=== PATIENT | male | born 1940 | race Caucasian/White ===

== ENCOUNTER 2020-01-31 09:22 | Day surgery (SDC) | payer MEDICARE, OTHER ==
[~2020-01-31 09:22] MED LIST: ACETAZOLAMIDE 250 MG TABLET PO ONE; Ak-Dilate OPHTHALMIC*** 1.065 ML, Cyclogyl 1% OPHTH SOL 5 ML 1.065 ML, GATIFLOXACIN 0.5... OP ONE; BETADINE 5% OPHTHALMIC 30 ML OP ONE; Lactated Ringers 1,000 ML IV ONE; NON-FORMULARY ITEM OP ONE; TETRACAINE 0.5% STERI-UNIT SOL OP ONE; Zofran 4 MG/2 ML VIAL IV PRN; cefUROXime sodium 0.005 GM in Sodium Chloride Flush 30 ML*** 0.5 ML IJ SCH
[2020-01-31] MEDS: Lactated Ringers 1,000 ML IV SCH ×2 (09:40→10:17)
[2020-01-31] MEDS ORDERED: LIDOCAINE HCL 1% 50 MG/5 ML VL PF IJ ONE (10:00)
[2020-01-31] MEDS ORDERED: Epinephrine Preservative Free 1 MG/ML INTRAOP ONE (10:00)
[2020-01-31] MEDS ORDERED: DIPRIVAN 200 MG/20 ML IV ONE ×2 (11:43→11:59)
[2020-01-31 13:08] VITALS: O2SAT 99
[2020-01-31 13:18] VITALS: BP 138/58; PULSE 68
== END 2020-01-31 13:27 | disposition home or self-care (01) ==
LOC: SDC 09:22
PROVIDERS: ATTEND Ophthalmology
DX: H25.812 Combined forms of age-related cataract, left eye (principal); I10 Essential (primary) hypertension; E78.00 Pure hypercholesterolemia, unspecified; Z79.899 Other long term (current) drug therapy
CPT/HCPCS: 99100; C1780; J0171; J2001; J2704; A9270-GY

== ENCOUNTER 2020-03-06 09:10 | Day surgery (SDC) | payer MEDICARE, OTHER ==
[~2020-03-06 09:10] MED LIST changes: +Epinephrine Preservative Free 1 MG/ML INTRAOP ONE; +LIDOCAINE HCL 1% 50 MG/5 ML VL PF IJ ONE; +Lactated Ringers 1,000 ML IV SCH
[2020-03-06] MEDS ORDERED: DIPRIVAN 200 MG/20 ML IV ONE (12:01)
[2020-03-06 12:53] VITALS: O2SAT 97
[2020-03-06 13:47] VITALS: BP 138/78; PULSE 60
== END 2020-03-06 13:25 | disposition home or self-care (01) ==
LOC: SDC 09:10
PROVIDERS: ATTEND Ophthalmology
DX: H25.811 Combined forms of age-related cataract, right eye (principal); I10 Essential (primary) hypertension; E78.00 Pure hypercholesterolemia, unspecified; Z79.899 Other long term (current) drug therapy
CPT/HCPCS: 99100; C1780; J0171; J2001; J2704; A9270-GY